=== PATIENT | male | born 1950 | race Caucasian/White ===

== ENCOUNTER 2017-01-12 20:28 | Emergency (ER) | payer OTHER ==
[~2017-01-12] VITALS: Ht 177.8 cm; Wt 109.1 kg
[~2017-01-12 20:28] MED LIST: DOCU-94 PO; DOXE25CA2 PO; LANS30CA63 PO; LCTX PO; LSN5 PO; RANI300T PO; SNG10 PO; VANC5CAP PO
[2017-01-12 20:44] VITALS: Ht 177.8 cm; Wt 109.1 kg
[2017-01-12] MEDS ORDERED: XYLOCAINE 1%/SOD BICARB 20 ML VIAL INFIL ONE (21:15)
[2017-01-12] MEDS ORDERED: DIPHTHERIA/TETANUS/PERTUSSIS 0.5 ML SYR/VIAL IM. ONE (21:15)
[2017-01-12] MEDS ORDERED: LCTX PO (21:54)
--- NOTE | 2017-01-12 22:17 | EMERGENCY ROOM VISIT NOTE ---
ED Visit Note First contact with patient: 21:01 The patient was seen and examined with Shine Bragg. I agree with the history, physical and findings. Please see the note for disposition and details.
--- NOTE | 2017-01-12 22:26 | EMERGENCY ROOM VISIT NOTE ---
History First contact with patient: 21:01 Chief Complaint: LACERATION/CUT (SUT/DERMABOND) Stated Complaint: LACERATION TO RT HAND, 3RD DIGIT Nursing Triage Summary: Patient reports he cut right middle finger on knuckle while putting a metal roof on today. Patient cut himself with a piece of metal. History of Present Illness The patient is a 66 year old male who presents to the Emergency Room with complaints of a laceration to his right third finger while installing a metal roof today and cut his finger. The patient reports a moderate amount of bleeding. He was able to stop the bleeding with pressure, but every time he bent finger, the wound opened and started the bleeding again. He called his family doctor and was referred here for possible sutures. The patient is right- hand-dominant. Tetanus immunization is up-to-date. He denies any significant pain, and is [id number]. Review of Systems 6 system review was performed and was negative except for pertinent positives and negatives as indicated in history of present illness Past Medical/Surgical History Medical Problems: (1) Asthma (2) Méndez esophagus (3) Diabetes mellitus, type II (4) Dyslipidemia (5) Gastroparesis (6) Generalized anxiety disorder (7) GERD (gastroesophageal reflux disease) (8) HTN (hypertension) (9) IBS (irritable bowel syndrome) (10) Steatohepatitis, nonalcoholic Surgical Problems: (1) H/O nasal septoplasty (2) History of arthroplasty of left knee (3) History of carpal tunnel surgery (4) History of cholecystectomy (5) History of tonsillectomy and adenoidectomy (6) S/P lumbar spinal fusion Family History Cancer Diabetes mellitus FH: heart disease FHx: gallbladder disease Hypertension Kidney disease Kidney stones Social History Smoking Status: Never Smoker Alcohol Use: occasionally Marital Status: Housing Status: lives with significant other Occupation Status: employed Current/Historical Medications Scheduled Doxepin Hcl (Sinequan), 25 MG PO HS Lactobacillus Acidophilus (Lactinex), 1 TAB PO DAILY Lansoprazole (Prevacid), 30 MG PO QAM Montelukast Sod (Montelukast Sodium), 10 MG PO QPM Ranitidine Hcl (Zantac), 300 MG PO AMHS Allergies Coded Allergies: Codeine (Verified Allergy, Mild, nausea, 01/12/17) Adhesives (Verified Allergy, Unknown, skin irritation with terminal clerk contact, 01/12/17) CI Pigment Blue 63 (Verified Allergy, Unknown, NAUSEA,DIARRHEA, HEADACHE, 01/12/17) Dexlansoprazole (Verified Allergy, Unknown, NAUSEA,DIARRHEA, HEADACHE, 01/12) Duloxetine (Verified Allergy, Unknown, diaphoresis/short temper, 01/12/17) Fluoxetine (Verified Allergy, Unknown, CHEST PAIN, 01/12/17) Latex1 -Allergic Contact Dermititis (Unverified Allergy, Unknown, RASH, 01/12/17) Oxycodone (Unverified Allergy, Unknown, nausea, 01/12/17) Pantoprazole (Unverified Allergy, Unknown, per PCP note , 01/12/17) Esomeprazole (Verified Adverse Reaction, Unknown, DAIRRHEA, 01/12/17) Omeprazole (Verified Adverse Reaction, Unknown, DIARRHEA, 01/12/17) Physical Exam Vital Signs Date Time Temp Pulse Resp B/P (MAP) Pulse Ox O2 Delivery O2 Flow Rate FiO2 01/12/17 20:44 37.2 90 18 151/101 97 Room Air Physical Exam CONSTITUTIONAL: Healthy and well nourished. Alert and oriented X 3 with positive affect. HEENT: Normocephalic, atraumatic. Pupils equal, round and reactive. NECK: Full active range of motion without discomfort. MUSCULOSKELETAL: Examination of the right third finger shows a diagonal 1 cm laceration across the dorsal PIP joint. Capillary refill is less than 2 seconds. INTEGUMENTARY: No rash or other significant dermatologic conditions noted. NEUROLOGIC: Right third finger is sensory intact. Medical Decision & Procedures Medications Administered Medications (Trade) Dose Ordered Sig/Bryan Route Start Time Stop Time Status Last Admin Dose Admin Diphtheria/ Pertussis/Tetanus Vacc (Adacel Inj) 0.5 ml ONCE ONCE IM. 01/12/17 21:15 01/12/17 21:16 DC 01/12/17 21:10 0.5 ML Procedure Laceration repair was performed under digital block anesthesia after receiving verbal consent from the patient. Using buffered 1% lidocaine without epinephrine, good digital block anesthesia was administered. The wound was then peripherally cleansed with iodine, then loosely pressure irrigated with 100 mL of normal saline. Exploration of the wound does not show any involvement of the underlying joint or tendons. The patient has good extensor tendon strength against resistance. The wound was then approximated using 5-0 nylon simple interrupted sutures. Bacitracin dressing was applied. ED Course Patient history and physical exam were performed. Nurse's notes were reviewed. Laceration repair was performed under digital block anesthesia. The patient was provided additional verbal and written wound care instructions. Ice and elevation for swelling. Ibuprofen or Tylenol as needed for pain. Suture removal in 12-14 days, or seek reevaluation sooner for any signs of wound infection. The patient was happy with plan of care, voiced understanding of all discharge instructions, and denied any pain at the time of discharge. The patient was also seen and examined by Dr. Dixon, ED attending physician, who agrees with workup and plan of care. Medical Decision Impression Primary Impression: Laceration of right middle finger Departure Information Dispostion Home / Self-Care Referrals Kaley Mukherjee M.D. (PCP) Ryley Parker M.D. Forms HOME CARE DOCUMENTATION FORM, IMPORTANT VISIT INFORMATION Patient Instructions [facility] Additional Instructions Keep wound clean and dry. Do not allow any crusting or dried blood to accumulate on sutures. If this occurs, use a 1:1 solution of hydrogen peroxide/ water on a Q-tip to clean the wound. Use an antibiotic ointment for 3-4 days, then let wound dry. Suture removal in 12-14 days. Return sooner for any signs of infection (increasing redness, swelling, drainage). Ice and elevate for swelling and pain. Ibuprofen or Tylenol as needed for additional pain relief. Problem Qualifiers Primary Impression: Laceration of right middle finger Encounter type: initial encounter Damage to nail status: without damage Foreign body presence: without foreign body Qualified Codes: S61.212A - Laceration without foreign body of right middle finger without damage to nail, initial encounter
[2017-01-12 22:34] VITALS: BP 163/105; PULSE 89; TEMP 37.2; O2SAT 96
== END 2017-01-12 22:15 | disposition home or self-care (01) ==
LOC: C.EDB 20:29 → C.EDD 22:15
DX: S61.212A Laceration without foreign body of right middle finger without damage to nail, initial encounter (principal); W45.8XXA Other foreign body or object entering through skin, initial encounter; J45.909 Unspecified asthma, uncomplicated; K22.70 Barrett's esophagus without dysplasia; E11.9 Type 2 diabetes mellitus without complications; E78.5 Hyperlipidemia, unspecified; F41.9 Anxiety disorder, unspecified; K21.9 Gastro-esophageal reflux disease without esophagitis; I10 Essential (primary) hypertension; K58.9 Irritable bowel syndrome, unspecified; Z83.3 Family history of diabetes mellitus; Z82.49 Family history of ischemic heart disease and other diseases of the circulatory system; Z23 Encounter for immunization

== ENCOUNTER → 2017-09-03 | Outpatient (CLI) | payer OTHER ==
[~2017-09-03] MED LIST changes: -DOCU-94 PO; -LSN5 PO; -VANC5CAP PO
--- NOTE | 2017-09-03 10:16 | DIAGNOSTIC IMAGING REPORT ---
R UPPER EXT JOINT WITHOUT CLINICAL HISTORY: RIGHT SHOULDER PAIN,ROTATOR CUFF TEAR TECHNIQUE: MRI multi axial acquisition COMPARISON STUDY: None FINDINGS: Moderate hypertrophic change of the acromioclavicular joint. Inferior osteophytic reaction creates moderate impingement upon the supraspinatus musculotendinous insertion. Small amount of fluid within the acromioclavicular joint and to a lesser extent subdeltoid bursa. Full-thickness tear of the anterior and/or leading-edge of the supraspinatus tendon with extension to the mid tendinous substance. No significant and/or only minimal musculotendinous retraction currently. Infraspinatus tendon is intact. Mild tendinopathy of the subscapularis tendon. Glenoid labrum shows a mild degenerative substance change with no acute or superimposed tear. There is linear split of the biceps tendon within the bicipital groove based on the transaxial images. IMPRESSION: 1. Full-thickness tear anterior and mid aspect supraspinatus tendon. 2. Hypertrophic change acromioclavicular joint region moderate impingement at the musculotendinous juncture of the supraspinatus. 3. Mild tendinopathy of the subscapularis tendon. 4. Linear split of the biceps tendon within the bicipital groove. The above report was generated using voice recognition software. It may contain grammatical, syntax or spelling errors. Electronically signed by: Tiago Russo M.D. 09/03/2017 10:15 AM Dictated Date/Time: 09/03/2017 10:09 AM
== END | disposition home or self-care (01) ==
LOC: C.MRIBC 09:21
PROVIDERS: ATTEND Orthopaedic Surgery
DX: M75.101 Unspecified rotator cuff tear or rupture of right shoulder, not specified as traumatic (principal); R93.7 Abnormal findings on diagnostic imaging of other parts of musculoskeletal system

== ENCOUNTER 2022-03-15 20:07 | Observation (INO) ==
[2022-03-15 20:52] LABS: Basophils # (auto) 0.03 K/uL (0-0.2); Basophils % (auto) 0.3 %; Eosinophils # (auto) 0.22 K/uL (0-0.50); Eosinophils % (auto) 2.5 %; Hematocrit (blood only) 43.2 % (40.1-51.0); Immature Granulocytes # (auto) 0.03 K/uL (0.00-0.02); Immature Granulocytes % (auto) 0.3 %; Lymphocytes # (auto) 1.88 K/uL (1.2-3.4); Lymphocytes % (auto) 21.3 %; Mean Corpuscular Hemoglobin 30.4 pg (25.0-34.0); Mean Corpuscular Hgb Conc 34.7 g/dL (32.0-36.0); Mean Corpuscular Volume 87.4 fL (80.0-100.0); Mean Platelet Volume 10.3 fL (9.4-12.4); Monocytes # (auto) 0.83 K/uL (0.24-0.82); Monocytes % (auto) 9.4 %; Neutrophils # (auto) 5.85 K/uL (1.4-6.5); Neutrophils % (auto) 66.2 %; Platelet Count 166 K/uL (130-400); RDW Coefficient of Variation 13.2 % (11.5-14.5); RDW Standard Deviation 41.6 fL (36.4-46.3); Red Blood Count 4.94 M/uL (4.63-6.08); White Blood Count 8.84 K/ul (4.8-10.8)
[2022-03-15 21:13] LABS: Albumin Globulin Ratio 1.6 (0.9-2); Albumin Level 4.4 gm/dl (3.4-5.0); BUN Creatinine Ratio 28.3 (10-20); Bilirubin,Total 0.7 mg/dl (0.2-1.0); Calcium 9.6 mg/dl (8.5-10.1); Creatinine Clr Calc Pharmacy 78.1 ml/min; Est GFR (African American) 87.2 ml/min; Est GFR (Non-African American) 75.2 ml/min; Globulin 2.7 gm/dl (2.5-4.0); Potassium 3.9 mmol/L (3.5-5.1); Total Protein 7.1 gm/dl (6.0-8.3)
[2022-03-15 21:19] LABS: Appearance Urine Clear (Clear); Bilirubin Urine Negative (Negative); Blood Urine Negative (Negative); Color Urine Yellow; Glucose Urine UA 3+ (Negative); Ketones Urine Negative (Negative); Leukocyte Esterase Urine Negative (Negative); Nitrite Urine Negative (Negative); Protein Urine Negative (Negative); Specific Gravity Urine 1.031 (1.000-1.030); Urobilinogen Urine Negative (Negative)
[2022-03-15] MEDS ORDERED: OPTIRAY 300 100mL IV ONE (22:55)
[2022-03-15] MEDS ORDERED: SODIUM CHLORIDE 0.9% 1000ML 500 ML IV ONE (23:12)
[2022-03-15] MEDS ORDERED: fentaNYL citrate 100 MCG/2 ML VIAL IV STA (23:12)
[2022-03-15] MEDS ORDERED: ONDANSETRON INJ 2 MG/ML 2 ML VIAL IV STA (23:12)
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
[2022-03-16] MEDS ORDERED: KETOROLAC TROMETHAMINE 15 MG/ML VIAL IV ONE (00:52)
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
[2022-03-16] MEDS ORDERED: ONDANSETRON INJ 2 MG/ML 2 ML VIAL IV PRN (02:18)
[2022-03-16] MEDS ORDERED: PIPERACILLIN/TAZOBACTAM 4.5 GM in DEXTROSE 5% 100 ML IV ONE (02:30)
[2022-03-16] MEDS: MoRPHine SULFATE 4 MG/ML 1 ML CARP\\VIAL IV PRN ×2 (02:36→10:38)
[2022-03-16] MEDS: ACETAMINOPHEN 1,000 MG/100 ML VIAL IV PRN ×2 (03:41→15:06)
[2022-03-16] MEDS ORDERED: hydrALAZINE HCL 20 MG/ML VIAL IV PRN (03:55)
--- NOTE | 2022-03-16 07:41 | CT Scan Report ---
ABDOMEN AND PELVIS CT WITH IV CONTRAST CT DOSE: 1089.45 mGy.cm HISTORY: Diffuse abdominal pain. History of prostate cancer. TECHNIQUE: Multiaxial CT images of the abdomen and pelvis were performed following the use of intrave nous contrast. A dose lowering technique was utilized adhering to the principles of ALARA. COMPARISON STUDY: Abdomen and pelvis CT 01/17/2022. FINDINGS: The lung bases are clear. No pneumoperitoneum. No pneumatosis. No suspicious lytic or blast ic osseous lesions. Hepatic steatosis. Cholecystectomy. The spleen, adrenal glands, and pancreas unre markable. Bilateral peripelvic renal cysts are again noted. No hydronephrosis. No retroperitoneal lym phadenopathy. The main portal vein is patent. The bladder is unremarkable. Multiple brachytherapy see ds again noted within the prostate gland. No pelvic lymphadenopathy. Colonic diverticulosis. No evide nce for acute diverticulitis. Multiple dilated and fluid-filled loops of mid to distal small bowel se en within the abdomen with a focal transition point at the distal ileum within the mid pelvis on imag e [id number]. Therefore, this is consistent with a small bowel obstruction. The terminal ileum is decompress ed. Trace mesenteric fluid is noted. IMPRESSION: Small bowel obstruction with the transition point located at the distal ileum within the mid pelvis a s described above. ACT 112: Negative or not required by law. Electronically signed by: Chad Cooper M.D. 03/16/2022 7:39 AM
[2022-03-16 07:47] LABS: Albumin Globulin Ratio 1.8 (0.9-2); Albumin Level 4.1 gm/dl (3.4-5.0); BUN Creatinine Ratio 25.9 (10-20); Bilirubin,Total 1.6 mg/dl (0.2-1.0); Calcium 9.2 mg/dl (8.5-10.1); Creatinine Clr Calc Pharmacy 69.3 ml/min; Est GFR (African American) 75.1 ml/min; Est GFR (Non-African American) 64.8 ml/min; Globulin 2.3 gm/dl (2.5-4.0); Potassium 4.3 mmol/L (3.5-5.1); Total Protein 6.4 gm/dl (6.0-8.3)
[2022-03-16 07:51] LABS: INR 1.1 (0.9-1.1); Prothrombin Time 11.5 Seconds (9.0-12.0)
[2022-03-16 08:08] LABS: Basophils # (auto) 0.01 K/uL (0-0.2); Basophils % (auto) 0.2 %; Eosinophils # (auto) 0.04 K/uL (0-0.50); Eosinophils % (auto) 0.9 %; Hematocrit (blood only) 43.8 % (40.1-51.0); Hemoglobin 15.2 g/dl (14.0-18.0); Immature Granulocytes # (auto) 0.01 K/uL (0.00-0.02); Immature Granulocytes % (auto) 0.2 %; Lymphocytes # (auto) 0.66 K/uL (1.2-3.4); Lymphocytes % (auto) 14.6 %; Mean Corpuscular Hemoglobin 30.3 pg (25.0-34.0); Mean Corpuscular Hgb Conc 34.7 g/dL (32.0-36.0); Mean Corpuscular Volume 87.3 fL (80.0-100.0); Mean Platelet Volume 10.2 fL (9.4-12.4); Monocytes # (auto) 0.52 K/uL (0.24-0.82); Monocytes % (auto) 11.5 %; Neutrophils # (auto) 3.27 K/uL (1.4-6.5); Neutrophils % (auto) 72.6 %; Platelet Count 130 K/uL (130-400); RBC Morphology Unremarkable; RDW Coefficient of Variation 13.2 % (11.5-14.5); RDW Standard Deviation 41.8 fL (36.4-46.3); Red Blood Count 5.02 M/uL (4.63-6.08); White Blood Count 4.51 K/ul (4.8-10.8)
[2022-03-16] MEDS: NSS + 20MEQ KCL 20 MEQ/1,000 ML BAG IV SCH ×2 (08:36→16:34)
[2022-03-16] MEDS: PIPERACILLIN/TAZOBACTAM 4.5 GM in DEXTROSE 5% 100 ML IV SCH ×2 (08:38→15:26)
[2022-03-16] MEDS: FAMOTIDINE 20 MG in SYRINGE 3 ML IV SCH ×2 (10:38→20:04)
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
[2022-03-16] MEDS: DICLOFENAC SOD 1% GEL 100 GM TUBE EXT SCH ×3 (12:48→20:04)
--- NOTE | 2022-03-16 20:26 | Communication Note ---
Date of Service: March 16, 2022 Saw patient late in the afternoon. He has had numerous bowel movements throughout the day. Abd distension has improved. No nausea or vomiting. He asks for ice chips or sips of clears. Denies any abdominal pain. No dyspnea. Had some mild cervical neck pain early in the day. He has had chronic neck issues for several years. Exam - gen - NAD mouth - MMM heart - RRR, s1 s2 lungs - CTA b/l abd - mild distension, multiple abdominal wall scars, BS+, NT, no peritoneal signs ext - no edema, pulses 2+ b/l labs reviewed from earlier today - noted that ast/alt are elevated CT abd/pelvis reviewed A/P: SBO likely 2nd to adhesions from numerous intra-abdominal surgeries - improved. Abnormal LFTs. Can stop IV abx - no indication for such. Appreciate gen surg consult with Dr Cameron. I corresponded with Dr Cameron - will start clears tonight. Repeat labs including LFTs in am. Saurabh Ash MD
[2022-03-17] MEDS: NSS + 20MEQ KCL 20 MEQ/1,000 ML BAG IV SCH ×3 (00:05→16:47)
--- NOTE | 2022-03-17 08:37 | Surgery Progress Note ---
Date of Service March 17, 2022 Assessment & Plan (1) Small bowel obstruction: Plan: improving advance to full liquids labs (LFTs) pending Admission and Anticipated Discharge Date Admission Date: March 16, 2022 Subjective multiple loose BMs, less bloated, still some "soreness" Physical Exam Constitutional: WD/WN, vitals as above Gastrointestinal (Abdomen): Inspection/Auscultation: + abdomen distended (minimal) and + abdominal surgical scar Percussion/Palpation: abdomen soft; abdomen nontender Results & Data ([facility]) Vital Signs (Past 12 Hours) Vital Signs Temp Pulse Resp BP Pulse Ox O2 Del Method 03/16/22 22:57 37.4 C 75 18 106/67 94 Room Air PG Care Time/CCT Total # of Minutes Spent Total Time Spent with Patient: Total time spent is greater than 50% in coordination of care (as documented) at patient's floor/unit and/or counseling patient: Coding Level of Care Code 68033 Subseq Hosp Care Lvl 1 Diagnoses Small bowel obstruction K56.609
[2022-03-17 08:41] LABS: Basophils # (auto) 0.01 K/uL (0-0.2); Basophils % (auto) 0.2 %; Eosinophils # (auto) 0.27 K/uL (0-0.50); Eosinophils % (auto) 6.6 %; Hematocrit (blood only) 38.3 % (40.1-51.0); Hemoglobin 13.5 g/dl (14.0-18.0); Immature Granulocytes # (auto) 0.01 K/uL (0.00-0.02); Immature Granulocytes % (auto) 0.2 %; Lymphocytes # (auto) 1.05 K/uL (1.2-3.4); Lymphocytes % (auto) 25.5 %; Mean Platelet Volume 10.4 fL (9.4-12.4); Monocytes # (auto) 0.63 K/uL (0.24-0.82); Monocytes % (auto) 15.3 %; Neutrophils # (auto) 2.14 K/uL (1.4-6.5); Neutrophils % (auto) 52.2 %; Platelet Count 124 K/uL (130-400); White Blood Count 4.11 K/ul (4.8-10.8)
[2022-03-17 09:02] LABS: ALC (manual) 1.07 K/uL (1.2-3.4); ANC (manual) 2.22 K/uL (1.4-6.5); Eosinophils # (manual) 0.37 K/uL (0-0.50); Eosinophils % (manual) 9 %; Lymphocytes # (manual) 1.07 K/uL (1.2-3.4); Lymphocytes % (manual) 26 %; Mean Corpuscular Hemoglobin 30.5 pg (25.0-34.0); Mean Corpuscular Hgb Conc 35.2 g/dL (32.0-36.0); Mean Corpuscular Volume 86.5 fL (80.0-100.0); Monocytes # (manual) 0.45 K/uL (0.24-0.82); Monocytes % (manual) 11 %; Neutrophils # (manual) 2.22 K/uL (1.4-6.5); Neutrophils % (manual) 54 %; RBC Morphology Unremarkable; RDW Coefficient of Variation 13.5 % (11.5-14.5); RDW Standard Deviation 42.3 fL (36.4-46.3); Red Blood Count 4.43 M/uL (4.63-6.08)
[2022-03-17] MEDS: DICLOFENAC SOD 1% GEL 100 GM TUBE EXT SCH ×4 (09:12→20:36)
[2022-03-17] MEDS: FAMOTIDINE 20 MG in SYRINGE 3 ML IV SCH ×2 (09:12→20:38)
[2022-03-17 09:18] LABS: Albumin Globulin Ratio 1.5 (0.9-2); Albumin Level 3.6 gm/dl (3.4-5.0); BUN Creatinine Ratio 21.3 (10-20); Bilirubin,Total 1.1 mg/dl (0.2-1.0); Calcium 8.5 mg/dl (8.5-10.1); Creatinine Clr Calc Pharmacy 87.2 ml/min; Est GFR (African American) 98.3 ml/min; Est GFR (Non-African American) 84.8 ml/min; Globulin 2.4 gm/dl (2.5-4.0); Magnesium 1.6 mg/dl (1.7-2.4); Potassium 4.2 mmol/L (3.5-5.1)
[2022-03-17] MEDS: MAGNESIUM SULFATE / D5W 1 GM/100 ML BAG IV SCH ×2 (10:33→12:28)
[2022-03-17] MEDS ORDERED: FAMOTIDINE 20 MG in SYRINGE 3 ML IV ONE (12:59)
[2022-03-17] MEDS: LANSOPRAZOLE 30 MG SOLTAB PO SCH (13:53)
[2022-03-17] MEDS: SERTRALINE HCL 50 MG TABLET PO SCH (15:53)
[2022-03-17] MEDS: MUPIROCIN 2% OINT 22 GM TUBE EXT SCH ×2 (18:00→20:37)
--- NOTE | 2022-03-17 20:34 | Hospitalist Progress Note ---
Date of Service March 17, 2022 Assessment & Plan (1) Small bowel obstruction: Plan: Presented with SBO with transition point terminal ileum. Clinically improving. Copious stools, distension improved, no N/V, tolerating clears. Appreciate gen surg consultation and assistance - diet advanced to full liquids. Abx not indicated for SBO. Continue to ambulate. Keep electrolytes wnl. (2) Abnormal LFTs: Plan: Etiology?? Reactive? with pancytopenia --- viral induced? tick-borne? other? at minimum will repeat in am. consider anaplasmosis testing. consider repeat COVID testing. (3) Pancytopenia: Plan: etiology?? see #2 above. cbc in am. (4) Diabetes mellitus, type II: Plan: Hold empagliflozin. Novolog SSI. Hba1c 6.9%. (5) HTN (hypertension): Plan: BPs cont to be acceptable despite holding losartan Follow BPs (6) Méndez esophagus: Plan: Méndez's esophagus/GERD- Cont H2 laz Cont lansoprazole (7) GERD (gastroesophageal reflux disease): Plan: H2 laz + PPI (8) Generalized anxiety disorder: Plan: Resume sertraline and doxepin (9) Depression: Plan: Resume sertraline & doxepin (10) Prostate cancer: Plan: noted (11) History of radiation therapy: (12) Abnormal nasal finding: Plan: early cellulitis? simply due to irritation from recent attempts at NG tube placement? start bactroban ointment BID to nares and also rub thin layer on outside of nose serial exams Plan labs in am updated pt's by phone this evening Admission and Anticipated Discharge Date Admission Date: March 16, 2022 Subjective patient passing multiple stools distension resolved had mild GERD type symptoms earlier in the day - now resolved tolerating liquids no nausea no emesis is concerned about his nose being red (skin of nose) noted this upon awakening this am nose is irritated from the NG tube placement attempts in ER has chronic sinus symptoms has chronic sinus headaches & congestion Review of Systems Review of Systems: gen - no fevers cv - no cp, no orthopnea pulm - no cough or dyspnea GI - no pain Physical Exam Physical Exam: gen - NAD HENT - nose - outside of nose is mildly pink but not tender; nares - no impetigo or crusty discharge; no epistaxis mouth - MMM neck - no JVD heart - RRR, s1 s2 lungs - CTA b/l abd - mild distension - improved from yesterday; BS+; NT; no HSM ext - no edema, pulses 2+ b/l Results & Data Results & Data ([facility]) Vital Signs (Past 12 Hours) Vital Signs Temp Pulse Resp BP Pulse Ox O2 Del Method 03/17/22 15:25 36.8 C 75 18 141/78 H 94 Room Air Laboratory Results LFTs modestly improved today BMP wnl mild drop in platelets & wbc overnight PG Care Time/CCT Total # of Minutes Spent Total Time Spent with Patient: Total time spent is greater than 50% in coordination of care (as documented) at patient's floor/unit and/or counseling patient: Coding Level of Care Code 63321 Subseq Hosp Care Lvl 2 Diagnoses Small bowel obstruction K56.609 Abnormal LFTs R79.89 Pancytopenia D61.818 Diabetes mellitus, type II E11.9 HTN (hypertension) I10 Méndez esophagus K22.70 GERD (gastroesophageal reflux disease) K21.9 Generalized anxiety disorder F41.1 Depression F32.A Prostate cancer C61 History of radiation therapy Z92.3 Abnormal nasal finding R68.89
[2022-03-17] MEDS ORDERED: FAMOTIDINE 20 MG TAB PO SCH (21:00)
[2022-03-17] MEDS ORDERED: MONTELUKAST SODIUM 10 MG TABLET PO SCH (21:00)
[2022-03-17] MEDS ORDERED: DOXEPIN HCL 25 MG CAPSULE PO SCH (21:00)
[2022-03-18 07:05] LABS: Basophils # (auto) 0.01 K/uL (0-0.2); Basophils % (auto) 0.2 %; Eosinophils # (auto) 0.19 K/uL (0-0.50); Eosinophils % (auto) 4.5 %; Hematocrit (blood only) 35.8 % (40.1-51.0); Hemoglobin 12.6 g/dl (14.0-18.0); Immature Granulocytes # (auto) 0.03 K/uL (0.00-0.02); Immature Granulocytes % (auto) 0.7 %; Lymphocytes # (auto) 1.12 K/uL (1.2-3.4); Lymphocytes % (auto) 26.5 %; Mean Platelet Volume 10.2 fL (9.4-12.4); Monocytes # (auto) 0.52 K/uL (0.24-0.82); Monocytes % (auto) 12.3 %; Neutrophils # (auto) 2.35 K/uL (1.4-6.5); Neutrophils % (auto) 55.8 %; Platelet Count 110 K/uL (130-400); White Blood Count 4.22 K/ul (4.8-10.8)
[2022-03-18 07:18] VITALS: TEMP 98.1; O2SAT 96
[2022-03-18 07:28] LABS: Mean Corpuscular Hemoglobin 30.3 pg (25.0-34.0); Mean Corpuscular Hgb Conc 35.2 g/dL (32.0-36.0); Mean Corpuscular Volume 86.1 fL (80.0-100.0); RDW Coefficient of Variation 13.1 % (11.5-14.5); RDW Standard Deviation 41.1 fL (36.4-46.3); Red Blood Count 4.16 M/uL (4.63-6.08)
[2022-03-18 07:31] LABS: Albumin Globulin Ratio 1.5 (0.9-2); Albumin Level 3.4 gm/dl (3.4-5.0); Bilirubin,Total 0.8 mg/dl (0.2-1.0); Calcium 8.5 mg/dl (8.5-10.1); Creatinine Clr Calc Pharmacy 83.4 ml/min; Est GFR (African American) 94.1 ml/min; Est GFR (Non-African American) 81.2 ml/min; Globulin 2.2 gm/dl (2.5-4.0); Magnesium 1.9 mg/dl (1.7-2.4); Potassium 3.9 mmol/L (3.5-5.1); Total Protein 5.6 gm/dl (6.0-8.3)
--- NOTE | 2022-03-18 08:00 | Surgery Progress Note ---
Date of Service March 18, 2022 Assessment & Plan (1) Small bowel obstruction: Plan: Patient here with SBO..clinically resolving. No abdominal complaints. continues with + bowel function Will advance diet to low fiber this AM and see how he fairs Made mention of some dark stools. Hbg 12.1 (15) on admission. No obvious blood noted. If tolerates diet may be dispo'd from our point of view pending medical clearance No need to f/u in surgery clinic as outpt Admission and Anticipated Discharge Date Admission Date: March 16, 2022 Subjective Patient is feeling well overall. Denies abdominal pain, nausea/vomiting. Tolerating full liquid diet. Still having some loose BM's...mentions that they have been dark in appearance, no overt blood noted. Physical Exam Physical Exam: awake/alert, no distress Gastrointestinal (Abdomen): Inspection/Auscultation: + abdominal surgical scar; abdomen not distended Percussion/Palpation: + abdomen tender (mild disomfort to palpation in midline, improved) and abdomen soft Results & Data ([facility]) Vital Signs (Past 12 Hours) Vital Signs Temp Pulse Pulse Resp BP Pulse Ox O2 Del Method 03/18/22 07:16 36.7 C 61 18 150/88 H 96 Room Air 03/17/22 22:42 36.6 C 63 18 138/78 98 Room Air PG Care Time/CCT Total # of Minutes Spent Total Time Spent with Patient: Total time spent is greater than 50% in coordination of care (as documented) at patient's floor/unit and/or counseling patient: Coding Level of Care Code 78936 Subseq Hosp Care Lvl 1 Diagnoses Small bowel obstruction K56.609
[2022-03-18] MEDS ORDERED: CEROVITE ADV FORMULA TAB PO SCH (09:00)
[2022-03-18] MEDS: FAMOTIDINE 20 MG in SYRINGE 3 ML IV SCH (09:22)
[2022-03-18] MEDS: MUPIROCIN 2% OINT 22 GM TUBE EXT SCH (09:22)
[2022-03-18] MEDS: LANSOPRAZOLE 30 MG SOLTAB PO SCH (09:23)
[2022-03-18] MEDS: SERTRALINE HCL 50 MG TABLET PO SCH (09:23)
[2022-03-18] MEDS: DICLOFENAC SOD 1% GEL 100 GM TUBE EXT SCH ×2 (09:23→13:24)
[2022-03-18 16:06] VITALS: BP 119/72; PULSE 18
--- NOTE | 2022-03-18 16:28 | Discharge Summary ---
Date of Service date of admission - March 16, 2022 date of discharge - March 18, 2022 Admission HPI Per Admitting Provider The patient is a 72-year-old male with a past medical history including incisional hernia, right bundle branch block, CARRION, splenomegaly, hypertension, generalized anxiety disorder, basal cell carcinoma, GERD, Méndez's esophagus, diabetes type 2, dyslipidemia, sacroiliitis, depression and prostate cancer. He is status post radiation treatment for prostate cancer earlier this year. He does have a history of bowel resection due to diverticulitis, but denies any history of bowel obstruction. He presents with a 4-day history of crampy abdominal pain and diarrhea. The pain is diffuse in nature but most specifically in the right lower quadrant. Work-up in the emergency department included CT abdomen pelvis which showed small bowel obstruction with transitional point in the terminal ileum. Principal Diagnosis 1. SBO - resolved 2. abnormal LFTs - improving 3. 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 control servicer contact blue dye Allergy Unknown NAUSEA,DIARRHEA, Verified 02/26/22 10:29 HEADACHE dexlansoprazole Allergy Unknown NAUSEA,DIARRHEA, Verified 02/26/22 10:29 HEADACHE duloxetine Allergy Unknown diaphoresis/short Verified 02/26/22 10:29 temper fluoxetine Allergy Unknown CHEST PAIN Verified 02/26/22 10:29 latex Allergy Unknown RASH Verified 02/26/22 10:29 oxycodone Allergy Unknown nausea Verified 02/26/22 10:29 pantoprazole Allergy Unknown per PCP Verified 02/26/22 10:29 note metformin AdvReac Intermediate Diarrhea Verified 02/26/22 10:29 empagliflozin AdvReac Mild Abdominal Verified 02/26/22 10:29 [From Jardiance] Pain ezetimibe [From Zetia] AdvReac Mild Joint Pain Verified 02/26/22 10:29 esomeprazole AdvReac Unknown DAIRRHEA Verified 02/26/22 10:29 omeprazole AdvReac Unknown DIARRHEA Verified 02/26/22 10:29 red yeast rice AdvReac Muscle Pain Verified 02/26/22 10:29 Consultations [facility] [place] General Surgery Ordered Studies Abdomen/Pelvis CT 03/15/22 22:[address] WITH IV CONTRAST CT DOSE: 1089.45 mGy.cm HISTORY: Diffuse abdominal pain. History of prostate cancer. TECHNIQUE: Multiaxial CT images of the abdomen and pelvis were performed following the use of intravenous contrast. A dose lowering technique was utilized adhering to the principles of ALARA. COMPARISON STUDY: Abdomen and pelvis CT 01/17/2022. FINDINGS: The lung bases are clear. No pneumoperitoneum. No pneumatosis. No suspicious lytic or blastic osseous lesions. Hepatic steatosis. Cholecystectomy. The spleen, adrenal glands, and pancreas unremarkable. Bilateral peripelvic renal cysts are again noted. No hydronephrosis. No retroperitoneal lymphadenopathy. The main portal vein is patent. The bladder is unremarkable. Multiple brachytherapy seeds again noted within the prostate gland. No pelvic lymphadenopathy. Colonic diverticulosis. No evidence for acute diverticulitis. Multiple dilated and fluid-filled loops of mid to distal small bowel seen within the abdomen with a focal transition point at the distal ileum within the mid pel vis on image [id number]. Therefore, this is consistent with a small bowel obstruction. The terminal ileum is decompressed. Trace mesenteric fluid is noted. IMPRESSION: Small bowel obstruction with the transition point located at the distal ileum within the mid pelvis as described above. ACT 112: Negative or not required by law. Electronically signed by: Chad Cooper M.D. 03/16/2022 7:39 AM Hospital Course (1) Small bowel obstruction: Presented with SBO with transition point in the terminal ileum. Attempts at NG tube placement in the ER were unsuccessful. Fortunately he clinically improved with bowel rest, IV Fluids, and time. He was seen by [facility] general surgery who provided pugh recommendations for his care. He began to pass copious stools and his distension resolved. He was resumed on clear liquids and had no nausea/emesis. Diet was ultimately advanced to low fiber without difficulty. He was advised to continue on low fiber diet for at least 10 days. (2) Abnormal LFTs: Etiology uncertain. Reactive? With pancytopenia --- viral induced? tick-borne? other? Anaplasmosis smear was negative, and DNA test also returned negative. COVID testing x 2 were negative. The liver functions began to improve before discharge. The most likely culprit for the abnormal LFTs and pancytopenia was a viral pathogen. He will need repeat LFTs within 1 week of discharge. (3) Pancytopenia: Etiology?? Viral? Other? see #2 above. Lowest platelet count was 110 WBC count was 4.1 at lowest. Hemoglobin was 12.6 at discharge. He will need repeat CBC with diff within 1 week of discharge. If CBC and LFTs continue to remain abnormal consider formal EBV/CMV testing, etc. (4) Diabetes mellitus, type II: Continue empagliflozin. Hba1c 6.9%. (5) HTN (hypertension): Continue losartan. Well-controlled while here. (6) Méndez esophagus: Méndez's esophagus/GERD- Cont H2 laz Cont lansoprazole (7) GERD (gastroesophageal reflux disease): H2 laz + PPI (8) Generalized anxiety disorder: Continue sertraline and doxepin (9) Depression: Continue sertraline & doxepin (10) Prostate cancer: Continue lupron injections [id number] as previous. (11) History of radiation therapy: s/p brachytherapy seed therapy for prostate cancer. (12) Abnormal nasal finding: Patient had external & internal nasal irritation from NG tube placement attempts. Bactroban ointment BID was utilized to nares and externally on outside of nose. He will continue this for a few more days at home. There was no overt impetigo or cellulitis at time of discharge, however. Total Time Total Time Spent Total Time Spent (In Minutes): 40 Discharge Plan Discharge Items Patient Disposition: Home - Self-Care Reason For Visit: SBO Discharge Diagnosis: 1. Small Bowel Obstruction (also known as "SBO") - resolved 2. modestly low platelet count - perhaps due to recent viral infection 3. modestly elevated liver function tests - improving Activity: Resume your previous activity Non-emergency contact: Primary Care Provider Call non-emergency contact if: you have any medication questions and your symptoms worsen Follow-up/Referrals: Robert Carter CRNP [Primary Care Provider] - 03/26/22 8:20 am (5-7 days ) Diet: Carb Consistent or DM2 and Low Fiber Diet Comment: Stay on low fiber diet for 1-2 weeks, then resume fiber intake gradually Addtl Attending Provider Instructions: Mr Koroma, You were hospitalized for a small bowel obstruction. A small bowel obstruction is when the bowel is blocked and stool/gas cannot move through in a normal fashion. Typically most bowel obstructions are caused by adhesions. Adhesions are pieces of scar tissue that have formed as a result of prior abdominal operations. You improved with bowel rest and time. We resumed clear liquids and advanced this to low fiber. You are tolerating the low fiber diet at time of discharge. The general surgery team followed you during the stay and they are satisfied with your recovery. In addition to the blocked bowel we noted that your liver function tests were modestly elevated. They started to improve before you went home. We also noted that your platelet count was mildly low. Viral infections, tickborne illnesses, and medications are some of the possibilities that may have caused these 2 things to happen. We checked you twice for COVID - both tests were negative. A screen for anaplasmosis infection (caused by ticks) was negative. Since you are feeling well you will simply need a repeat CBC and liver function tests (LFTs) within the week following discharge. Recommendations - 1. low fiber diet for 1-2 weeks (see the handout previously given to you) 2. repeat CBC and LFTs within 1 week - your family doctor can check these 3. bactroban ointment to both nostrils for 3-5 days for irritation; you can use the tube we gave to you at [facility] 4. follow-up with your family doctor within 5-7 days Return to [facility] if - * you have fevers over 100 degrees * you have worsening abdominal pain * you have nausea and/or vomiting * you are not passing any gas or stool from your rectum * any other concerns It was our pleasure to care for you at [facility]! Dr Ash Pending Studies at Discharge: Yes Studies:: Anaplasmosis test (a tick-borne infection seen commonly in [facility]) Stand-Alone Forms: My [facility] Accupass, Smoking Cessation Medications and DC Order Prescriptions: New mupirocin 2 % Ointment 1 applic EXT BID Qty: 15 0RF Rx Instructions: apply in both nostrils for 3-5 days for irritation Continued ketoconazole 2 % cream 1 applic topical BID PRN sertraline [Zoloft] 50 mg tablet 50 mg PO DAILY Fish Oil 120-180-500 mg capsule 1 cap PO DAILY leuprolide (3 month) 22.5 mg syringe 22.5 mg subcut ONCE Qty: 1 0RF Rx Instructions: C61. Coming on 03/07/22. doxepin 25 mg capsule 25 mg PO QPM Qty: 90 3RF lansoprazole 30 mg capsule,delayed release(DR/EC) 30 mg PO QAM Qty: 90 1RF diclofenac sodium 75 mg tablet,delayed release (DR/EC) 75 mg PO BID Qty: 180 1RF Jardiance 10 mg tablet 10 mg PO DAILY Qty: 100 1RF losartan 50 mg tablet 50 mg PO BID Qty: 200 1RF famotidine 20 mg tablet 20 mg PO BID Qty: 180 1RF montelukast 10 mg tablet 10 mg PO QPM Qty: 90 1RF Label Comments: My PCP switched to QAM rather than QPM lactobacillus combination no.9 1 dose PO QAM [id number] 1 tab PO QAM coenzyme Q10 1 ea PO DAILY Label Comments: My doctor put me on this daily for my heart instead of aspirin calcium carbonate-vit D3-min 600 mg calcium- 400 unit tablet 1 tab PO DAILY vitamin E 400 unit tablet 180 mg PO DAILY Discontinued sertraline 50 mg tablet 75 mg PO DAILY Qty: 135 3RF Label Comments: NOT taking 75 mg QAM any more, ONLY 50 mg QAM Rx Instructions: NOT taking 75 mg QAM any more, ONLY 50 mg QAM Discharge Orders: Discharge Order (Routine); Ordered 03/18/22 Ordered By: Sauarbh Asher/Other Patient Handouts: Small Bowel Obstruction Admission Data Admit Date/Time: 03/16/22 01:16 Attending Provider: Saurabh Ash Admit Provider: Chris Solano Primary Care Provider: Robert Carter Other Providers: Chris Solano ; Jerry Cameron Other Interventions: Discharge Summary Assessment (RN) Last Done: 03/18/22 16:03 Coding Level of Care Code D/C DAY MANAGEMENT >30 MINS Diagnoses Small bowel obstruction K56.609 Abnormal LFTs R79.89 Pancytopenia D61.818 Diabetes mellitus, type II E11.9 HTN (hypertension) I10 Méndez esophagus K22.70 GERD (gastroesophageal reflux disease) K21.9 Generalized anxiety disorder F41.1 Depression F32.A Prostate cancer C61 History of radiation therapy Z92.3 Abnormal nasal finding R68.89
[2022-03-18] MEDS ORDERED: FAMOTIDINE 20 MG TAB PO SCH (21:00)
== END 2022-03-18 17:13 | disposition home or self-care (01) ==
LOC: ED 20:07 → INTOOBSV 03-16 01:16 → 3N 03-16 01:16 → SUATTDRO 03-16 01:16 → 3N 03-16 02:25